=== PATIENT | male | born 1950 | race Caucasian/White ===

== ENCOUNTER → 2021-02-11 | Outpatient (CLI) | payer MEDICARE ==
[2021-02-11 16:23] LABS: HEMOGLOBIN 13.4 gm/dl (14.0-17.5); RED BLOOD COUNT 4.82 M/UL (4.20-5.50); WHITE BLOOD COUNT 13.5 K/UL (4.5-11.0)
== END ==
LOC: LAB 16:00
PROVIDERS: Nurse Practitioner Primary Care
DX: R19.7 Diarrhea, unspecified (principal); R11.0 Nausea; E87.5 Hyperkalemia
CPT/HCPCS: 36415; 80053; 84443; 85025

== ENCOUNTER → 2021-03-25 | Outpatient (CLI) | payer MEDICARE | LOC: US 13:24 | DX: E04.1 Nontoxic single thyroid nodule (principal) | CPT/HCPCS: 76536 ==